=== PATIENT | female | born 1965 | race Caucasian/White ===

== ENCOUNTER 2019-02-06 22:22 | Emergency (ER) | payer MEDICAID ==
[~2019-02-06] VITALS: Ht 172.7 cm; Wt 86.0 kg
[2019-02-06 22:42] VITALS: BP 177/110
[2019-02-06] MEDS ORDERED: DIPH-423 PO (23:10)
[2019-02-06] MEDS ORDERED: DOXY100C43 PO (23:10)
== END 2019-02-06 23:45 | disposition home or self-care (01) ==
LOC: ER 22:23
DX: L03.311 Cellulitis of abdominal wall (principal); F17.200 Nicotine dependence, unspecified, uncomplicated; Z86.19 Personal history of other infectious and parasitic diseases; Z79.899 Other long term (current) drug therapy
CPT/HCPCS: 99283

== ENCOUNTER 2019-08-22 11:42 | Inpatient (IN) | payer MEDICAID ==
[~2019-08-22] VITALS: Ht 170.2 cm; Wt 93.0 kg
[~2019-08-22 11:42] MED LIST: DIPH-423 PO
[2019-08-22] MEDS ORDERED: normal saline 1000ML IV soln IV ONE (12:15)
[2019-08-22] MEDS ORDERED: vancomycin/NS 1 GM ADD-VANTAGE 250 ML IV ONE (12:15)
[2019-08-22] MEDS ORDERED: CefTRIAXone 2gm/D5W 50ml 50 ML IV ONE (12:15)
[2019-08-22 12:34] LABS: BASOPHILS # (AUTO) 0.1 X10'3 (0-0.2); BASOPHILS % (AUTO) 0.8 % (0-1); EOSINOPHILS # (AUTO) 0.3 X10'3 (0-0.9); EOSINOPHILS % (AUTO) 3.5 % (0-6); HEMATOCRIT 39.3 % (35.0-45.0); HEMOGLOBIN 13.3 g/dl (12.0-16.0); LYMPHOCYTES # (AUTO) 1.6 X10'3 (1.1-4.8); LYMPHOCYTES % (AUTO) 20.5 % (21-51); MEAN CORPUSCULAR HEMOGLOBIN 29.8 PG (27.0-31.0); MEAN CORPUSCULAR HGB CONC 33.9 g/dL (33.0-36.5); MEAN CORPUSCULAR VOLUME 87.9 FL (78-98); MONOCYTES # (AUTO) 0.7 X10'3 (0-0.9); MONOCYTES % (AUTO) 8.6 % (2-12); NEUTROPHILS # (AUTO) 5.3 X10'3 (1.8-7.7); NEUTROPHILS % (AUTO) 66.6 % (42-75); PLATELET COUNT 243 X10'3 (140-440); RED BLOOD COUNT 4.47 X10'6 (4.20-5.60); WHITE BLOOD COUNT 7.9 X10'3 (4.5-11.0)
[2019-08-22] MEDS ORDERED: iohexol 300mg/ml 100ml inj. ONE (12:45)
[2019-08-22 13:00] LABS: ALANINE AMINOTRANSFERASE 45 U/L (12-78); ALBUMIN 3.4 G/DL (3.4-5.0); ALBUMIN/GLOBULIN RATIO 0.8 (1.1-1.5); ALKALINE PHOSPHATASE 132 IU/L (46-116); ANION GAP 7 (8-16); ASPARTATE AMINO TRANSFERASE 33 U/L (10-37); BILIRUBIN,TOTAL 0.6 MG/DL (0.1-1.0); BLOOD UREA NITROGEN 18 MG/DL (7-18); BUN/CREATININE RATIO 20.5 (6.6-38.0); CALCIUM 8.9 MG/DL (8.5-10.1); CHLORIDE 106 MMOL/L (99-107); CREATININE 0.88 MG/DL (0.40-0.90); GLUCOSE 142 MG/DL (70-104); SODIUM 140 MMOL/L (135-145); TOTAL CARBON DIOXIDE 26.7 MMOL/L (24-32); TOTAL PROTEIN 7.9 G/DL (6.4-8.2); eGFR 67 ML/MIN
[2019-08-22] MEDS ORDERED: CLIN300C71 PO (14:05)
[2019-08-22] MEDS ORDERED: FLU VACC QS 2019-20 (6 MOS UP) 60 MCG/0.5 ML VIAL IMVAC ONE (15:05)
[2019-08-22] MEDS ORDERED: potassium CL 10mEq/100ml bag 100 ML IV PRN ×2 (15:40)
[2019-08-22] MEDS ORDERED: ondansetron/PF 4mg/2ml inj IV PRN (15:40)
[2019-08-22] MEDS ORDERED: magnesium Cl slow-release 64mg tablet PO PRN (15:40)
[2019-08-22] MEDS ORDERED: diphenhydrAMINE 25mg capsule PO PRN (15:40)
[2019-08-22] MEDS ORDERED: magnesium 2GM in 50ml NS 50 ML IV PRN (15:40)
[2019-08-22] MEDS ORDERED: magnesium 4gm in 100ml NS 100 ML IV PRN (15:40)
[2019-08-22] MEDS ORDERED: potassium Cl 20 mEq SR tablet PO PRN ×2 (15:40)
[2019-08-22] MEDS ORDERED: mag hydrox/Alum hydrox/simeth 30ml oral suspension PO PRN (15:40)
[2019-08-22] MEDS ORDERED: acetaminophen 325mg tablet PO PRN (15:40)
[2019-08-22] MEDS: levoFLOXACIN-Levaquin 500mg/D5 100 ML IV SCH (16:50)
--- NOTE | 2019-08-22 16:50 | NUR ---
Patient in room ED 16. I have received report from Jr YOST and had the opportunity to ask questions and assume patient care.
[2019-08-22 17:15] VITALS: BP 188/109
--- NOTE | 2019-08-22 18:11 | NUR ---
Problems reprioritized. Patient report given, questions answered & plan of care reviewed with Lexi YOST RN.
--- NOTE | 2019-08-22 18:28 | NUR ---
Patient in room ORTHO 4010. I have received report from Scarlett YOST and had the opportunity to ask questions and assume patient care.
[2019-08-22] MEDS: normal saline 1000ml 1,000 ML IV SCH (18:51)
[2019-08-22 19:14] VITALS: BP 164/106
[2019-08-22] MEDS: HYDROcodone/acetaminophen 5mg/325mg tablet PO PRN (19:31)
[2019-08-22] MEDS: K and/or MAG REPLACEMENT MC SCH (19:54)
[2019-08-22 22:00] VITALS: BP 147/90
[2019-08-23] MEDS: HYDROcodone/acetaminophen 5mg/325mg tablet PO PRN ×3 (00:25→21:29)
[2019-08-23] MEDS: VANCOmycin 1250MG/NS 250ml Bag 250 ML IV SCH ×2 (00:27→13:03)
[2019-08-23 05:24] LABS: BASOPHILS # (AUTO) 0.1 X10'3 (0-0.2); BASOPHILS % (AUTO) 0.8 % (0-1); EOSINOPHILS # (AUTO) 0.3 X10'3 (0-0.9); EOSINOPHILS % (AUTO) 3.9 % (0-6); HEMATOCRIT 34.9 % (35.0-45.0); LYMPHOCYTES # (AUTO) 2.3 X10'3 (1.1-4.8); LYMPHOCYTES % (AUTO) 29.7 % (21-51); MEAN CORPUSCULAR HEMOGLOBIN 30.2 PG (27.0-31.0); MEAN CORPUSCULAR HGB CONC 34.4 g/dL (33.0-36.5); MEAN CORPUSCULAR VOLUME 87.9 FL (78-98); MEAN PLATELET VOLUME 8.8 FL (7.4-10.4); MONOCYTES # (AUTO) 0.7 X10'3 (0-0.9); MONOCYTES % (AUTO) 9.5 % (2-12); NEUTROPHILS # (AUTO) 4.4 X10'3 (1.8-7.7); NEUTROPHILS % (AUTO) 56.1 % (42-75); PLATELET COUNT 205 X10'3 (140-440); RED BLOOD COUNT 3.97 X10'6 (4.20-5.60); WHITE BLOOD COUNT 7.8 X10'3 (4.5-11.0)
[2019-08-23 05:28] LABS: ALBUMIN 2.9 G/DL (3.4-5.0); ANION GAP 4 (8-16); BLOOD UREA NITROGEN 15 MG/DL (7-18); BUN/CREATININE RATIO 16.7 (6.6-38.0); CALCIUM 8.9 MG/DL (8.5-10.1); CHLORIDE 108 MMOL/L (99-107); GLUCOSE 105 MG/DL (70-104); POTASSIUM 3.8 MMOL/L (3.5-5.1); SODIUM 141 MMOL/L (135-145); TOTAL CARBON DIOXIDE 28.7 MMOL/L (24-32); eGFR 65 ML/MIN
[2019-08-23 06:00] VITALS: BP 159/59
--- NOTE | 2019-08-23 06:17 | NUR ---
Problems reprioritized. Patient report given, questions answered & plan of care reviewed with Geri YOST.
[2019-08-23] MEDS: levoFLOXACIN-Levaquin 500mg/D5 100 ML IV SCH (07:36)
[2019-08-23] MEDS: K and/or MAG REPLACEMENT MC SCH ×2 (08:00→19:55)
[2019-08-23 09:51] VITALS: BP 158/85
--- NOTE | 2019-08-23 18:18 | NUR ---
Problems reprioritized. Patient report given, questions answered & plan of care reviewed with Omaira YOST.
--- NOTE | 2019-08-23 18:18 | NUR ---
received report from RITIKA Nevarez
[2019-08-23 18:40] VITALS: BP 174/84
[2019-08-23] MEDS: lisinopril 5mg tablet PO SCH (18:55)
[2019-08-23 19:00] VITALS: BP 180/97
[2019-08-23] MEDS: lactobacillus rhamnosus 10,000 MMU CELLS/CAPSULE PO SCH (20:00)
--- NOTE | 2019-08-23 21:00 | NUR ---
paged MD about pt's BP of 180/87. went down to 169/104, 168/67. pt did receive lisinopril 6pm. MD aware of pt's condition.
--- NOTE | 2019-08-23 21:21 | NUR ---
PAGER ID: [phone] MESSAGE: [id number] Rosy Hollingsworth BP 180/97 at 1910, received lisinopril. BP 169/104 at 0. recheck 168/67. order of PRN antihypertensive? pls advise. thanks.
[2019-08-23 22:00] VITALS: BP 169/105
[2019-08-23 22:10] VITALS: BP 168/67
[2019-08-24] VITALS (8 sets, daily range): BP systolic 151–214; BP diastolic 90–108
[2019-08-24] MEDS: VANCOmycin 1250MG/NS 250ml Bag 250 ML IV SCH ×2 (01:10→13:06)
--- NOTE | 2019-08-24 05:06 | NUR ---
spoke with Hospitalist. received order of 10 mg lisinopril PO ONCE NOW.
[2019-08-24] MEDS ORDERED: lisinopril 10 MG tablet PO ONE (05:10)
[2019-08-24 06:02] LABS: BASOPHILS # (AUTO) 0.1 X10'3 (0-0.2); BASOPHILS % (AUTO) 0.8 % (0-1); EOSINOPHILS # (AUTO) 0.3 X10'3 (0-0.9); EOSINOPHILS % (AUTO) 4.2 % (0-6); HEMATOCRIT 35.1 % (35.0-45.0); HEMOGLOBIN 12.1 g/dl (12.0-16.0); LYMPHOCYTES # (AUTO) 2.2 X10'3 (1.1-4.8); LYMPHOCYTES % (AUTO) 29.8 % (21-51); MEAN CORPUSCULAR HEMOGLOBIN 30.4 PG (27.0-31.0); MEAN CORPUSCULAR HGB CONC 34.6 g/dL (33.0-36.5); MEAN PLATELET VOLUME 9.2 FL (7.4-10.4); MONOCYTES # (AUTO) 0.7 X10'3 (0-0.9); MONOCYTES % (AUTO) 9.3 % (2-12); NEUTROPHILS # (AUTO) 4.1 X10'3 (1.8-7.7); NEUTROPHILS % (AUTO) 55.9 % (42-75); PLATELET COUNT 200 X10'3 (140-440); RED BLOOD COUNT 3.98 X10'6 (4.20-5.60); WHITE BLOOD COUNT 7.4 X10'3 (4.5-11.0)
--- NOTE | 2019-08-24 06:21 | NUR ---
gave report to RITIKA Ruiz
[2019-08-24 06:27] LABS: ANION GAP 8 (8-16); BLOOD UREA NITROGEN 16 MG/DL (7-18); BUN/CREATININE RATIO 18.2 (6.6-38.0); CALCIUM 9.1 MG/DL (8.5-10.1); CHLORIDE 105 MMOL/L (99-107); CREATININE 0.88 MG/DL (0.40-0.90); GLUCOSE 97 MG/DL (70-104); POTASSIUM 3.8 MMOL/L (3.5-5.1); SODIUM 140 MMOL/L (135-145); TOTAL CARBON DIOXIDE 27.5 MMOL/L (24-32); eGFR 67 ML/MIN
--- NOTE | 2019-08-24 06:30 | NUR ---
Patient in room ORTHO 4010. I have received report from Omaira YOST and had the opportunity to ask questions and assume patient care.
[2019-08-24] MEDS: lisinopril 5mg tablet PO SCH (07:06)
[2019-08-24] MEDS: HYDROcodone/acetaminophen 5mg/325mg tablet PO PRN ×4 (07:06→19:22)
[2019-08-24] MEDS: lactobacillus rhamnosus 10,000 MMU CELLS/CAPSULE PO SCH ×2 (07:06→19:21)
[2019-08-24] MEDS: K and/or MAG REPLACEMENT MC SCH ×2 (07:08→19:19)
--- NOTE | 2019-08-24 10:38 | NUR ---
Paged Dr Merrill regarding pts BP PAGER ID: [phone] MESSAGE: Sara YOST [phone] T Hollingsworth, BP 192/108, received 5 mg zestril 3 hrs ago, no PRNs ordered, can I please have an order for a prn BP med, thanks!
[2019-08-24] MEDS: levoFLOXACIN 500mg tablet PO SCH (11:10)
--- NOTE | 2019-08-24 11:19 | NUR ---
Paged Dr Merrill again regarding pts high BP, will continue to monitor closely. PAGER ID: [phone] MESSAGE: Sara YOST [phone] T Darrick, BP 188/102, can I have a prn medication for BP, thanks! Addendum: 08/24/19 at 1121 by Lizet Puentes RN Received telephone orders from Dr Merrill for 5mg hydralazine once, will continue to monitor closely.
[2019-08-24] MEDS ORDERED: hydrALAZINE 20mg/ml inj. IV ONE (11:25)
[2019-08-24] MEDS ORDERED: VANCOMYCIN LEVEL IV ONE (12:30)
[2019-08-24] MEDS: normal saline 1000ml 1,000 ML IV SCH (15:11)
--- NOTE | 2019-08-24 18:05 | NUR ---
Problems reprioritized. Patient report given, questions answered & plan of care reviewed with Katerin YOST.
[2019-08-25] MEDS: HYDROcodone/acetaminophen 5mg/325mg tablet PO PRN ×4 (00:53→20:41)
[2019-08-25] MEDS: hydrALAZINE 25 MG tablet PO PRN ×2 (00:53→17:34)
[2019-08-25] MEDS: VANCOMYCIN 1,500MG inj. 1,500 MG in normal saline 500ml IV soln 500 ML IV SCH ×2 (00:58→13:35)
--- NOTE | 2019-08-25 00:59 | NUR ---
NEW ORDER OBTAINED FROM DR JACKSON FOR INCREASED BP 173/103 ; HYDRALAZINE 25MG PO Q6HRS PRN FOR SYSTOLIC BP >150.
--- NOTE | 2019-08-25 01:05 | NUR ---
ONE DOSE PRN HYDRALAZINE GIVEN FOR BP 181/102.
[2019-08-25 05:25] LABS: BASOPHILS # (AUTO) 0.1 X10'3 (0-0.2); BASOPHILS % (AUTO) 0.8 % (0-1); EOSINOPHILS # (AUTO) 0.4 X10'3 (0-0.9); EOSINOPHILS % (AUTO) 5.8 % (0-6); HEMATOCRIT 35.6 % (35.0-45.0); HEMOGLOBIN 12.3 g/dl (12.0-16.0); LYMPHOCYTES # (AUTO) 2.1 X10'3 (1.1-4.8); LYMPHOCYTES % (AUTO) 32.9 % (21-51); MEAN CORPUSCULAR HEMOGLOBIN 30.4 PG (27.0-31.0); MEAN CORPUSCULAR HGB CONC 34.6 g/dL (33.0-36.5); MEAN CORPUSCULAR VOLUME 87.9 FL (78-98); MEAN PLATELET VOLUME 8.4 FL (7.4-10.4); MONOCYTES # (AUTO) 0.7 X10'3 (0-0.9); NEUTROPHILS # (AUTO) 3.1 X10'3 (1.8-7.7); NEUTROPHILS % (AUTO) 49.5 % (42-75); PLATELET COUNT 218 X10'3 (140-440); RED BLOOD COUNT 4.05 X10'6 (4.20-5.60); RED CELL DISTRIBUTION WIDTH 13.1 % (11.5-14.5); WHITE BLOOD COUNT 6.3 X10'3 (4.5-11.0)
[2019-08-25 05:38] LABS: ALBUMIN 2.9 G/DL (3.4-5.0); ANION GAP 5 (8-16); BLOOD UREA NITROGEN 17 MG/DL (7-18); BUN/CREATININE RATIO 18.3 (6.6-38.0); CALCIUM 8.7 MG/DL (8.5-10.1); CHLORIDE 106 MMOL/L (99-107); CREATININE 0.93 MG/DL (0.40-0.90); GLUCOSE 100 MG/DL (70-104); MAGNESIUM 2.1 MG/DL (1.5-2.4); POTASSIUM 3.9 MMOL/L (3.5-5.1); SODIUM 140 MMOL/L (135-145); TOTAL CARBON DIOXIDE 28.9 MMOL/L (24-32); eGFR 63 ML/MIN
[2019-08-25 06:00] VITALS: BP 153/94
--- NOTE | 2019-08-25 06:22 | NUR ---
REPORT GIVEN TO RITIKA VALDES.
[2019-08-25] MEDS: K and/or MAG REPLACEMENT MC SCH ×2 (08:00→20:00)
[2019-08-25] MEDS: lactobacillus rhamnosus 10,000 MMU CELLS/CAPSULE PO SCH ×2 (08:05→20:05)
[2019-08-25] MEDS: lisinopril 5mg tablet PO SCH (08:05)
[2019-08-25 10:00] VITALS: BP 143/81
[2019-08-25] MEDS ORDERED: levoFLOXACIN 750MG TABLET PO SCH (11:00)
[2019-08-25] MEDS: levoFLOXACIN 500mg tablet PO SCH (11:11)
[2019-08-25] MEDS: metroNIDAZOLE 500mg tablet PO SCH ×2 (12:46→16:44)
[2019-08-25] MEDS ORDERED: levoFLOXACIN 250mg tablet PO ONE (14:00)
[2019-08-25 18:00] VITALS: BP 170/101
--- NOTE | 2019-08-25 18:15 | NUR ---
Received patient report from RITIKA Geiger. Assumed patient care.
[2019-08-25 22:00] VITALS: BP 162/78
[2019-08-26] MEDS: metroNIDAZOLE 500mg tablet PO SCH ×2 (00:03→07:42)
[2019-08-26] MEDS: hydrALAZINE 25 MG tablet PO PRN (00:03)
[2019-08-26] MEDS: VANCOMYCIN 1,500MG inj. 1,500 MG in normal saline 500ml IV soln 500 ML IV SCH (00:04)
[2019-08-26] MEDS: HYDROcodone/acetaminophen 5mg/325mg tablet PO PRN (03:04)
[2019-08-26 06:00] VITALS: BP 187/77
--- NOTE | 2019-08-26 06:18 | NUR ---
Patient report given, questions answered and plan of care reviewed with RITIKA Geiger.
[2019-08-26 06:38] LABS: ALBUMIN 3.1 G/DL (3.4-5.0); ANION GAP 7 (8-16); BLOOD UREA NITROGEN 17 MG/DL (7-18); BUN/CREATININE RATIO 17.3 (6.6-38.0); CALCIUM 8.9 MG/DL (8.5-10.1); CHLORIDE 106 MMOL/L (99-107); CREATININE 0.98 MG/DL (0.40-0.90); GLUCOSE 97 MG/DL (70-104); MAGNESIUM 2.1 MG/DL (1.5-2.4); POTASSIUM 3.6 MMOL/L (3.5-5.1); SODIUM 141 MMOL/L (135-145); TOTAL CARBON DIOXIDE 28.1 MMOL/L (24-32); eGFR 59 ML/MIN
[2019-08-26 06:43] LABS: BASOPHILS % (AUTO) 0.9 % (0-1); EOSINOPHILS # (AUTO) 0.3 X10'3 (0-0.9); EOSINOPHILS % (AUTO) 5.3 % (0-6); HEMATOCRIT 34.8 % (35.0-45.0); HEMOGLOBIN 12.1 g/dl (12.0-16.0); LYMPHOCYTES # (AUTO) 1.5 X10'3 (1.1-4.8); LYMPHOCYTES % (AUTO) 27.9 % (21-51); MEAN CORPUSCULAR HEMOGLOBIN 30.4 PG (27.0-31.0); MEAN CORPUSCULAR HGB CONC 34.8 g/dL (33.0-36.5); MEAN CORPUSCULAR VOLUME 87.4 FL (78-98); MEAN PLATELET VOLUME 8.8 FL (7.4-10.4); MONOCYTES # (AUTO) 0.5 X10'3 (0-0.9); MONOCYTES % (AUTO) 9.4 % (2-12); NEUTROPHILS # (AUTO) 3.1 X10'3 (1.8-7.7); NEUTROPHILS % (AUTO) 56.5 % (42-75); PLATELET COUNT 238 X10'3 (140-440); RED BLOOD COUNT 3.98 X10'6 (4.20-5.60); RED CELL DISTRIBUTION WIDTH 12.6 % (11.5-14.5); WHITE BLOOD COUNT 5.5 X10'3 (4.5-11.0)
[2019-08-26 07:41] VITALS: BP 180/95
[2019-08-26] MEDS: lisinopril 5mg tablet PO SCH (07:42)
[2019-08-26] MEDS: cloNIDine 0.1 mg tablet PO SCH ×2 (07:42→12:10)
[2019-08-26] MEDS: lactobacillus rhamnosus 10,000 MMU CELLS/CAPSULE PO SCH (07:42)
[2019-08-26] MEDS: K and/or MAG REPLACEMENT MC SCH (08:00)
[2019-08-26] MEDS ORDERED: CLON0.1T2 PO (09:55)
[2019-08-26] MEDS ORDERED: HYDR-4383 PO (09:55)
[2019-08-26] MEDS ORDERED: METR500T PO (09:55)
[2019-08-26] MEDS ORDERED: LEVO750T46 PO (09:55)
[2019-08-26] MEDS ORDERED: levoFLOXACIN 750MG TABLET PO SCH (11:00)
[2019-08-26] MEDS ORDERED: VANCOMYCIN LEVEL IV ONE (12:30)
== END 2019-08-26 12:49 | disposition home or self-care (01) | DRG 383 ==
LOC: ER 11:43 → ED HOLD 15:39 → ORTHO 4S 17:15
PROVIDERS: ADMIT Internal Medicine; ATTEND Internal Medicine
PROC: BP291ZZ Computerized Tomography (CT Scan) of Left Shoulder using Low Osmolar Contrast (ICD-10-PCS; principal; 2019-08-22)
PROC: 3E0234Z Introduction of Serum, Toxoid and Vaccine into Muscle, Percutaneous Approach (ICD-10-PCS; 2019-08-22)
DX: L03.114 Cellulitis of left upper limb (principal); B19.20 Unspecified viral hepatitis C without hepatic coma; F17.200 Nicotine dependence, unspecified, uncomplicated; I10 Essential (primary) hypertension; S51.852A Open bite of left forearm, initial encounter; W54.0XXA Bitten by dog, initial encounter; Y93.89 Activity, other specified; Y92.89 Other specified places as the place of occurrence of the external cause; Y99.8 Other external cause status; Z98.51 Tubal ligation status; Z23 Encounter for immunization
CPT/HCPCS: 36415; 73201; 80048; 80053; 80202; 83605; 83735; 84145; 85025; 87040; 87081; 96365; 99285; G0378; J0360; J0696; J1956; J3370; J3490; J7030; J7040; Q2037; Q9967

== ENCOUNTER 2021-03-28 23:18 | Emergency (ER) | payer MEDICAID ==
[~2021-03-28] VITALS: Ht 170.2 cm; Wt 102.3 kg
[~2021-03-28 23:18] MED LIST changes: +CLON0.1T2 PO; -DIPH-423 PO; +HYDR-4383 PO; +LEVO750T46 PO; +METR500T PO
[2021-03-29 00:03] LABS: BASOPHILS # (AUTO) 0.1 X10'3 (0-0.2); BASOPHILS % (AUTO) 0.6 % (0-1); EOSINOPHILS # (AUTO) 0.3 X10'3 (0-0.9); EOSINOPHILS % (AUTO) 3.2 % (0-6); HEMATOCRIT 40.6 % (35.0-45.0); HEMOGLOBIN 14.2 g/dl (12.0-16.0); LYMPHOCYTES # (AUTO) 2.3 X10'3 (1.1-4.8); LYMPHOCYTES % (AUTO) 28.1 % (21-51); MEAN CORPUSCULAR HEMOGLOBIN 30.8 PG (27.0-31.0); MEAN CORPUSCULAR HGB CONC 34.9 g/dL (33.0-36.5); MEAN CORPUSCULAR VOLUME 88.3 FL (78-98); MEAN PLATELET VOLUME 9.1 FL (7.4-10.4); MONOCYTES # (AUTO) 0.7 X10'3 (0-0.9); MONOCYTES % (AUTO) 8.3 % (2-12); NEUTROPHILS % (AUTO) 59.8 % (42-75); PLATELET COUNT 191 X10'3 (140-440); RED CELL DISTRIBUTION WIDTH 13.3 % (11.5-14.5); WHITE BLOOD COUNT 8.3 X10'3 (4.5-11.0)
[2021-03-29] MEDS ORDERED: hydrALAZINE 20mg/ml inj. IV ONE ×2 (00:10→00:55)
[2021-03-29 00:16] LABS: ALANINE AMINOTRANSFERASE 69 U/L (12-78); ALBUMIN 3.6 G/DL (3.4-5.0); ALBUMIN/GLOBULIN RATIO 0.9 (1.1-1.5); ALKALINE PHOSPHATASE 168 IU/L (46-116); ANION GAP 9 (8-16); ASPARTATE AMINO TRANSFERASE 40 U/L (10-37); BILIRUBIN,TOTAL 0.4 MG/DL (0.1-1.0); BLOOD UREA NITROGEN 16 MG/DL (7-18); BUN/CREATININE RATIO 12.9 (6.6-38.0); CALCIUM 9.1 MG/DL (8.5-10.1); CHLORIDE 107 MMOL/L (99-107); CREATININE 1.24 MG/DL (0.40-0.90); GLUCOSE 125 MG/DL (70-104); POTASSIUM 3.4 MMOL/L (3.5-5.1); SODIUM 144 MMOL/L (135-145); TOTAL CARBON DIOXIDE 28.3 MMOL/L (24-32); TOTAL PROTEIN 7.8 G/DL (6.4-8.2); eGFR 45 ML/MIN
[2021-03-29 02:09] VITALS: BP 179/112
== END 2021-03-29 02:12 | disposition home or self-care (01) ==
LOC: ER 23:19
DX: R51.9 Headache, unspecified (principal); I10 Essential (primary) hypertension; Z88.0 Allergy status to penicillin; Z79.899 Other long term (current) drug therapy
CPT/HCPCS: 36415; 71045; 80053; 83880; 84484; 85025; 93005; 96374; 96376; 99285; J0360

== ENCOUNTER 2022-11-30 15:56 | Emergency (ER) | payer MEDICAID ==
[~2022-11-30] VITALS: Ht 170.2 cm; Wt 170.0 kg
[~2022-11-30 15:56] MED LIST changes: -LEVO750T46 PO; +LEVO750T68 PO
[2022-11-30 16:05] VITALS: BP 200/125
== END 2022-11-30 18:55 ==
LOC: ER 15:57
DX: I10 Essential (primary) hypertension; Z88.0 Allergy status to penicillin
CPT/HCPCS: 74018; 99283